=== PATIENT | female | born 1995 | race Asian ===

== ENCOUNTER 2016-10-14 12:45 | Outpatient (CLI) | payer OTHER ==
[~2016-10-14] VITALS: Ht 162.6 cm; Wt 63.5 kg
[~2016-10-14 12:45] MED LIST: PHENERGAN W/CO120 M1 PO; PREDNISONE20 MG PO; PROVENTIL0.09 MG/A1 IH; ZITHROMAX Z PA250 MG PO
== END 2016-10-14 13:25 | disposition home or self-care (01) ==
LOC: LDRO 12:45
DX: Z34.03 Encounter for supervision of normal first pregnancy, third trimester (principal); Z3A.29 29 weeks gestation of pregnancy